=== PATIENT | male | born 1965 | race Caucasian/White ===

== ENCOUNTER 2016-12-09 16:49 | Emergency (ER) | payer OTHER ==
[~2016-12-09] VITALS: Ht 188 cm; Wt 99.3 kg
[2016-12-09 16:51] VITALS: TEMP 36.4; Ht 188 cm; Wt 99.3 kg
[2016-12-09] MEDS ORDERED: OXYCODONE HCL IR 5 MG TAB (IMMEDIATE RELEASE) PO STA (17:03)
--- NOTE | 2016-12-09 17:07 | EMERGENCY ROOM VISIT NOTE ---
History First contact with patient: 16:57 Chief Complaint: SHOULDER PAIN Stated Complaint: RT SHOULDER PAIN/INJURY History of Present Illness The patient is a 51 year old male who presents to the Emergency Room with complaints of fall and right arm pain. The patient states that he was getting into the cab of a semi-and missed the handle with his left hand and fell backwards onto an outstretched right arm. The patient complains of pain in the right shoulder. He rates his discomfort an 8/10. He denies any numbness or tingling. He denies any neck pain. He denies striking his head or having loss of consciousness. He denies any pain in his chest, abdomen, back or remaining extremities. He reports a remote history of injury to the right shoulder. Review of Systems A 10 system review of systems was completed with positives and pertinent negatives listed in the HPI. Past Medical/Surgical History Patient denies Social History Smoking Status: Current Every Day Smoker Occupation Status: employed Current/Historical Medications No Active Prescriptions or Reported Meds Allergies Coded Allergies: No Known Allergies (Unverified , 12/09/16) Physical Exam Vital Signs Date Time Temp Pulse Resp B/P Pulse Ox O2 Delivery O2 Flow Rate FiO2 12/09/16 18:38 69 16 133/88 96 12/09/16 16:51 36.4 86 18 181/83 99 Room Air Physical Exam VITALS: Vitals are noted on the nurse's note and reviewed by myself. Vital signs stable. GENERAL: This is a 51-year-old male, in no acute distress, nondiaphoretic, well- developed well-nourished. SKIN: The skin was without rashes, erythema, edema, or bruising. There are no lacerations or abrasions. There is no tenting of the skin. Capillary reflex less than 2 seconds. HEAD: Normocephalic atraumatic. EARS: The external ears are normal in appearance. EYES: Pupils equal round and reactive to light and accommodation. Conjunctivae without injection, sclerae without icterus. Extraocular movements intact. NOSE: Patent, turbinates without inflammation or discharge. No septal hematoma or bleeding. FACE: No facial tenderness. Full range of motion of the jaw without tenderness. MOUTH: Mucous membranes moist. Pharynx without erythema or exudate. Uvula midline. Airway patent. Tongue does not deviate. NECK: Supple without nuchal rigidity. Cervical spine is nontender. Full range of motion of the neck without tenderness. No JVD. HEART: Regular rate and rhythm without murmurs gallops or rubs. LUNGS: Clear to auscultation bilaterally without wheezes, rales or rhonchi. No retractions or accessory muscle use. No chest tenderness. MUSCULOSKELETAL: No muscle atrophy, erythema, or edema noted. Decreased range of motion at the right shoulder. Marked tenderness to palpation over the proximal humerus and acromioclavicular joint. Strength 5/5 throughout. The remaining extremities are unremarkable. NEURO: Patient was alert and oriented to person place and time. Normal Mini- Mental status exam. Normal sensation to light and sharp touch. No focal neurological deficits. Medical Decision & Procedures ER Provider Diagnostic Interpretation: RIGHT HUMERUS 2 VIEWS CLINICAL HISTORY: Fall with right arm pain. FINDINGS: AP and lateral views of the right humerus are correlated with radiographs of the right shoulder performed concurrently on 12/09/2016. The skeletal structures are well mineralized. There is no radiographic evidence of right humeral fracture. The shoulder and elbow joints are grossly maintained. A small calcific joint body is noted in the shoulder. The overlying soft tissues are within normal limits. Imaged right lung parenchyma appears clear. IMPRESSION: There is no radiographic evidence of right humeral fracture. RIGHT SHOULDER 3 VIEWS CLINICAL HISTORY: Fall with right arm pain. FINDINGS: 3 views of the right shoulder are obtained. No prior studies are available for comparison at the time of dictation. The skeletal structures are well mineralized. No fracture or dislocation is seen in the right shoulder. Mild productive degenerative change is identified at the acromioclavicular joint. The glenohumeral joint is preserved. The overlying soft tissues are within normal limits. A tiny radiodense foreign joint body is noted. The visualized right upper lobe lung parenchyma appears clear. An accessory azygous fissure is incidentally noted. IMPRESSION: 1. There is no radiographic evidence of fracture or dislocation in the right shoulder. 2. Mild arthritic change and small calcified joint body is above. Medications Administered Medications (Trade) Dose Ordered Sig/Yuko Route Start Time Stop Time Status Last Admin Dose Admin Oxycodone HCl (Roxicodone Immediate Rel Tab) 5 mg NOW STAT PO 12/09/16 17:03 12/09/16 17:04 DC 12/09/16 17:09 5 MG Oxycodone HCl (Roxicodone Immediate Rel 5MG Home Pack) 1 homepack UD ONCE PO 12/09/16 18:30 12/09/16 18:31 DC 12/09/16 18:35 1 HOMEPACK Procedure The patient was placed in an arm sling and neurovascular status was intact. ED Course The patient was seen and examined. He was given 1 OxyIR. Imaging was obtained as above. There is no evidence for obvious fracture or dislocation. He does have pain and decreased range of motion. He was advised that this could represent a soft tissue injury. He was given a take-home pack of OxyIR. He was encouraged a ibuprofen for his pain. He should wear the sling over the next several days. He should return to the ER with any worsening symptoms. Otherwise, he should follow-up with an orthopedic doctor when he returns home. Medical Decision The differential diagnosis includes rotator cuff injury, fracture, dislocation, sprain, strain, contusion, among others [place] Drug Monitoring Program Search Results: patient reviewed within database, no issues identified Impression Primary Impression: Right shoulder injury Departure Information Dispostion Home / Self-Care Condition GOOD Prescriptions No Active Prescriptions or Reported Meds Referrals No Doctor, Assigned (PCP) Fortunato SalazarD.O. Patient Instructions ED Contusion Shoulder, [facility] Additional Instructions Oxy IR 1-2 tablets every 4-6 hrs as needed for severe pain. No driving or alcohol use with Oxy IR. Ibuprofen 600 mg every 6-8 hours for moderate pain Wear the sling over the next 2-3 days Follow-up with an orthopedic doctor when you return home Return with any worsening symptoms Problem Qualifiers Primary Impression: Right shoulder injury Encounter type: initial encounter Qualified Codes: S49.91XA - Unspecified injury of right shoulder and upper arm, initial encounter
--- NOTE | 2016-12-09 18:11 | DIAGNOSTIC IMAGING REPORT ---
RIGHT HUMERUS 2 VIEWS CLINICAL HISTORY: Fall with right arm pain. FINDINGS: AP and lateral views of the right humerus are correlated with radiographs of the right shoulder performed concurrently on 12/09/2016. The skeletal structures are well mineralized. There is no radiographic evidence of right humeral fracture. The shoulder and elbow joints are grossly maintained. A small calcific joint body is noted in the shoulder. The overlying soft tissues are within normal limits. Imaged right lung parenchyma appears clear. IMPRESSION: There is no radiographic evidence of right humeral fracture. Electronically signed by: Abdias Godwin M.D. 12/09/2016 5:45 PM Dictated Date/Time: 12/09/2016 5:43 PM
--- NOTE | 2016-12-09 18:11 | DIAGNOSTIC IMAGING REPORT ---
RIGHT SHOULDER 3 VIEWS CLINICAL HISTORY: Fall with right arm pain. FINDINGS: 3 views of the right shoulder are obtained. No prior studies are available for comparison at the time of dictation. The skeletal structures are well mineralized. No fracture or dislocation is seen in the right shoulder. Mild productive degenerative change is identified at the acromioclavicular joint. The glenohumeral joint is preserved. The overlying soft tissues are within normal limits. A tiny radiodense foreign joint body is noted. The visualized right upper lobe lung parenchyma appears clear. An accessory azygous fissure is incidentally noted. IMPRESSION: 1. There is no radiographic evidence of fracture or dislocation in the right shoulder. 2. Mild arthritic change and small calcified joint body is above. Electronically signed by: Abdias Godwin M.D. 12/09/2016 5:43 PM Dictated Date/Time: 12/09/2016 5:41 PM
[2016-12-09] MEDS ORDERED: OXYCODONE IR HOME PACK PO ONE (18:30)
[2016-12-09 18:38] VITALS: BP 133/88; PULSE 69; O2SAT 96
== END 2016-12-09 18:39 | disposition home or self-care (01) ==
LOC: C.EDB 16:51 → C.EDD 18:39
DX: S49.91XA Unspecified injury of right shoulder and upper arm, initial encounter (principal); W19.XXXA Unspecified fall, initial encounter; F17.200 Nicotine dependence, unspecified, uncomplicated

== ENCOUNTER 2016-12-10 19:27 | Emergency (ER) | payer OTHER ==
[~2016-12-10] VITALS: Ht 182.9 cm; Wt 97.3 kg
[2016-12-10 19:55] VITALS: TEMP 36.9; Ht 182.9 cm; Wt 97.3 kg
--- NOTE | 2016-12-10 20:12 | EMERGENCY ROOM VISIT NOTE ---
ED Visit Note First contact with patient: 19:58 Chief Complaint: RIGHT Shoulder Pain History of Present Illness: Patient is a 51-year-old male who presents the emergency Department this evening for evaluation of his RIGHT-sided shoulder pain. The patient fell off his brothers semi-truck yesterday striking his shoulder. He was seen in this facility and had negative x-rays. He was provided OxyIR home pack. He use the entire course of this medication for his pain. He reports that he has been using the arm sling for his pain without relief. He denies any numbness or tingling into his extremity. He denies any worsening symptoms. He did travel [place] today with his brother and delivered their load and return to the area. He is on his way home to [place]. The patient reports no previous history of substance abuse or narcotic medication use. He rates Discomfort as a 9/10. Patient denies any associated neck pain, chest pain, abdominal pain, or extremity pain otherwise. Medications: Reviewed and discussed with the patient. Allergies: No known allergies. PMH: No pertinent past medical history. SHx: Patient is a 51-year-old male traveling through the area. ROS: All pertinent positive and negative review of systems are appropriately documented in the History of Present Illness. Physical Exam: VITAL SIGNS - Vital signs and nursing notes were reviewed. GENERAL - 51-year-old male appearing his stated age and in noticeable discomfort throughout the exam. NECK - FROM of the cervical spine. No spinous process or paraspinal muscle tenderness to palpation. No nuchal rigidity. LUNGS - Chest wall symmetric without accessory muscle use, intercostals retractions, or central cyanosis. Normal vesicular breath sounds CTA B/L. No wheezes, rales, or rhonchi appreciated. CARDIAC - RRR with S1/S2. No murmur, rubs, or gallops appreciated. MUSCULOSKELETAL - Active ROM of the RIGHT shoulder was limited in all directions. 15 of abduction. No step-off deformities of the clavicle were palpable. Subjective tenderness over the AC joint with palpation. Subjective tenderness to palpation at the bicipital insertion. Mild tenderness to palpation over the deltoid. NEUROLOGIC - SENSORY: Spinothalamic tract was found to be intact with ability to discriminate sharp versus dull sensation at the level of the RIGHT side of the neck down to the fingertips. No sensory deficits of the dorsal column were appreciated utilizing light touch for evaluation. VASCULAR - Capillary refill was brisk. +3/5 radial pulse palpated. ED Course: Patient seen and evaluated by myself. Previous emergency department visit notes were reviewed. I explained the patient that I would provide a home pack for pain medication, but no further medications at this point. He was provided a home pack for OxyIR. He will follow-up with his provider upon returning home. He will return for worsening symptoms. Patient discharged home in good condition. In the evaluation and treatment of this patient, the following differential diagnoses were considered: Forearm Contusion, Radial Head Fracture, Radial Styloid Process Fracture, Ulnar Styloid Process Fracture, Radius Fracture, Ulnar Fracture, Tennis Elbow, Golfer's Elbow, or Elbow Fracture. Impression: RIGHT Shoulder Contusion Discharge Instructions: You have been treated in the Emergency Department for Shoulder Pain. You have been provided OxyIR to be used for pain control. This is a narcotic medication. You cannot drive or consume alcohol while on this medicine. This medicine should only be used for pain that cannot be controlled with over-the- counter pain medicines. For pain control, you can use the following [id number] medicines (if >12 yo): - Regular strength (325mg/tab) Tylenol (acetaminophen) 2 tabs every 4-6 hours as needed. Do not exceed 12 tablets in a 24 hour period. Avoid taking more than 4 grams (4000 mg) of Tylenol per day. This includes any other sources of acetaminophen you may take on a regular basis. - Regular strength (200 mg/tab) Advil (ibuprofen) 1-2 tabs every 4-6 hours as needed. Do not exceed a dose of 3200 mg per day. If this is a recent injury (<24 hrs), ice can be applied to the area of pain for the first 3 days to help decrease pain and inflammation. Keep the shoulder brace/sling in place until evaluated by Orthopedics. Continue to perform range of motion exercises several times per day to help prevent the development of a "frozen shoulder". Return to the Emergency Department if your current symptoms worsen despite treatment course outlined above, or if you develop any of the following symptoms : intractable pain despite aforementioned treatment course or new onset of numbness or tingling of the arm. Current/Historical Medications No Active Prescriptions or Reported Meds Allergies Coded Allergies: No Known Allergies (Unverified , 12/09/16) Vital Signs Date Time Temp Pulse Resp B/P Pulse Ox O2 Delivery O2 Flow Rate FiO2 12/10/16 20:29 67 18 144/82 96 12/10/16 19:55 36.9 79 18 136/88 97 Room Air Medications Administered Medications (Trade) Dose Ordered Sig/Yuko Route Start Time Stop Time Status Last Admin Dose Admin Oxycodone HCl (Roxicodone Immediate Rel 5MG Home Pack) 1 homepack UD ONCE PO 12/10/16 20:15 12/10/16 20:16 DC 12/10/16 20:15 1 HOMEPACK Departure Information Impression Primary Impression: Shoulder contusion Dispostion Home / Self-Care Condition GOOD Prescriptions No Active Prescriptions or Reported Meds Referrals No Doctor, Assigned (PCP) Patient Instructions [facility] Additional Instructions You have been treated in the Emergency Department for Shoulder Pain. You have been provided OxyIR to be used for pain control. This is a narcotic medication. You cannot drive or consume alcohol while on this medicine. This medicine should only be used for pain that cannot be controlled with over-the- counter pain medicines. For pain control, you can use the following [id number] medicines (if >12 yo): - Regular strength (325mg/tab) Tylenol (acetaminophen) 2 tabs every 4-6 hours as needed. Do not exceed 12 tablets in a 24 hour period. Avoid taking more than 4 grams (4000 mg) of Tylenol per day. This includes any other sources of acetaminophen you may take on a regular basis. - Regular strength (200 mg/tab) Advil (ibuprofen) 1-2 tabs every 4-6 hours as needed. Do not exceed a dose of 3200 mg per day. If this is a recent injury (<24 hrs), ice can be applied to the area of pain for the first 3 days to help decrease pain and inflammation. Keep the shoulder brace/sling in place until evaluated by Orthopedics. Continue to perform range of motion exercises several times per day to help prevent the development of a "frozen shoulder". Return to the Emergency Department if your current symptoms worsen despite treatment course outlined above, or if you develop any of the following symptoms : intractable pain despite aforementioned treatment course or new onset of numbness or tingling of the arm. Problem Qualifiers Primary Impression: Shoulder contusion Encounter type: subsequent encounter Laterality: right Qualified Codes: S40.011D - Contusion of right shoulder, subsequent encounter
[2016-12-10] MEDS ORDERED: OXYCODONE IR HOME PACK PO ONE (20:15)
[2016-12-10 20:29] VITALS: BP 144/82; PULSE 67; O2SAT 96
== END 2016-12-10 20:29 | disposition home or self-care (01) ==
LOC: C.EDB 19:27 → C.EDD 20:29
DX: S40.011D Contusion of right shoulder, subsequent encounter (principal); W18.00XA Striking against unspecified object with subsequent fall, initial encounter